=== PATIENT | male | born 1970 | race Asian ===

== ENCOUNTER 2024-12-16 08:21 | Emergency (ER) | payer MEDICAID ==
[~2024-12-16] VITALS: Ht 170.2 cm; Wt 68.0 kg
[2024-12-16 08:39] VITALS: BP 118/73; O2SAT 99
== END 2024-12-16 09:27 | disposition left against medical advice (07) ==
LOC: ER 09:23
DX: M79.673 Pain in unspecified foot (principal); Z53.21 Procedure and treatment not carried out due to patient leaving prior to being seen by health care provider
CPT/HCPCS: A4606; A4663